=== PATIENT | female | born 1995 | race Caucasian/White ===

== ENCOUNTER 2017-06-22 14:40 | Inpatient (IN) | payer OTHER ==
[~2017-06-22] VITALS: Ht 162.6 cm; Wt 3.6 kg
[2017-06-24] MEDS ORDERED: PRENATAL TABLE1 EAC1 PO (08:29)
[2017-06-24] MEDS ORDERED: SYNTHROID100 MCG PO (08:30)
[2017-06-27] MEDS ORDERED: SURFAK240 M1 PO (08:39)
[2017-06-27] MEDS ORDERED: PERCOCET 5-3251 EACH PO (08:39)
== END 2017-06-27 11:04 | disposition home or self-care (01) | DRG 766 ==
LOC: OB/GYN 14:40 → LDR 06-24 06:47 → OB/GYN 06-24 06:47 → O/R 06-24 21:04 → OB/GYN 06-24 22:37
PROVIDERS: Specialist
PROC: 3E033VJ Introduction of Other Hormone into Peripheral Vein, Percutaneous Approach (ICD-10-PCS; 2017-06-24)
PROC: 4A1HXCZ Monitoring of Products of Conception, Cardiac Rate, External Approach (ICD-10-PCS; 2017-06-24)
PROC: 4A033R1 Measurement of Arterial Saturation, Peripheral, Percutaneous Approach (ICD-10-PCS; 2017-06-24)
PROC: 10D00Z1 Extraction of Products of Conception, Low, Open Approach (ICD-10-PCS; principal; 2017-06-24 20:45)
DX: O62.1 Secondary uterine inertia (principal); O48.0 Post-term pregnancy; Z3A.40 40 weeks gestation of pregnancy; O61.0 Failed medical induction of labor; Z37.0 Single live birth

== ENCOUNTER → 2019-10-15 | Outpatient (CLI) | payer OTHER ==
[~2019-10-15] MED LIST: PERCOCET 5-3251 EACH PO; PRENATAL TABLE1 EAC1 PO; SURFAK240 M1 PO; SYNTHROID100 MCG PO
== END | disposition home or self-care (01) ==
LOC: PRENATAL 13:30
PROVIDERS: ATTEND Specialist
DX: O99.89 Other specified diseases and conditions complicating pregnancy, childbirth and the puerperium (principal); O34.211 Maternal care for low transverse scar from previous cesarean delivery; O35.3XX1 Maternal care for (suspected) damage to fetus from viral disease in mother, fetus 1; O99.282 Endocrine, nutritional and metabolic diseases complicating pregnancy, second trimester

== ENCOUNTER 2020-01-27 20:02 | Inpatient (IN) | payer OTHER ==
[~2020-01-27] VITALS: Ht 162.6 cm; Wt 94.8 kg
[2020-01-28] MEDS ORDERED: PRENATAL TABLE1 EAC1 PO (03:19)
[2020-01-28] MEDS ORDERED: SYNTHROID88 MCG PO (03:19)
[2020-01-28] MEDS ORDERED: SINGULAIR4 MG PO (03:20)
== END 2020-01-29 17:54 | disposition home or self-care (01) | DRG 833 ==
LOC: LDR 20:02
PROVIDERS: ADMIT Specialist; ATTEND Specialist
PROC: 4A0HXFZ Measurement of Products of Conception, Cardiac Rhythm, External Approach (ICD-10-PCS; principal; 2020-01-27)
DX: O99.283 Endocrine, nutritional and metabolic diseases complicating pregnancy, third trimester (principal); Z3A.36 36 weeks gestation of pregnancy; Z20.828 Contact with and (suspected) exposure to other viral communicable diseases

== ENCOUNTER 2020-02-15 08:08 | Inpatient (IN) | payer OTHER ==
[~2020-02-15] VITALS: Ht 162.6 cm; Wt 3.2 kg
[~2020-02-15 08:08] MED LIST changes: +SINGULAIR4 MG PO; +SYNTHROID88 MCG PO
[2020-02-15] MEDS ORDERED: ADVAIR 100-501 EACH IH (09:32)
== END 2020-02-18 16:51 | DRG 785 ==
LOC: LDR 08:08 → O/R 12:22 → OB/GYN 14:36
PROVIDERS: ADMIT Specialist; ATTEND Specialist
PROC: 0UB70ZZ Excision of Bilateral Fallopian Tubes, Open Approach (ICD-10-PCS; 2020-02-15)
PROC: 4A1HXCZ Monitoring of Products of Conception, Cardiac Rate, External Approach (ICD-10-PCS; 2020-02-15)
PROC: 10D00Z1 Extraction of Products of Conception, Low, Open Approach (ICD-10-PCS; principal; 2020-02-15 12:00)
DX: O82 Encounter for cesarean delivery without indication (principal); O34.211 Maternal care for low transverse scar from previous cesarean delivery; Z20.828 Contact with and (suspected) exposure to other viral communicable diseases; Z37.0 Single live birth; Z3A.39 39 weeks gestation of pregnancy; Z30.2 Encounter for sterilization